=== PATIENT | male | born 1975 | race Caucasian/White ===

== ENCOUNTER 2024-05-09 13:01 | Emergency (ER) | payer BC ==
[~2024-05-09] VITALS: Ht 182.9 cm; Wt 99.8 kg
[2024-05-09 13:01] VITALS: BP_SYST 145; PULSE 113; RESP 22; TEMP 98; O2SAT 99
[2024-05-09] MEDS: LORazepam 2 MG/ML VIAL IVP ONE (13:26)
[2024-05-09] MEDS: NACL 0.9% 2,000 ML IV ONE (13:26)
[2024-05-09 13:50] LABS: BASOPHILS % (AUTO) 0.5 % (0.0-2.0); EOSINOPHILS % (AUTO) 0.3 % (0.0-4.0); HEMATOCRIT 27.2 % (36-54); HEMOGLOBIN 9.4 g/dL (14.0-18.0); LYMPHOCYTES # (AUTO) 0.5 K/uL (1.0-5.5); LYMPHOCYTES % (AUTO) 12.4 % (20.5-51.5); MEAN CORPUSCULAR HEMOGLOBIN 30 pg (27-31); MEAN CORPUSCULAR HGB CONC 34 % (32-36); MEAN CORPUSCULAR VOLUME 86 fL (79.0-98.0); MONOCYTES # (AUTO) 0.1 K/uL (0.0-1.0); NEUTROPHILS # (AUTO) 3.7 K/uL (1.8-7.7); NEUTROPHILS % (AUTO) 83.8 % (40.0-70.0); RED BLOOD CELL COUNT(AUTO) 3.17 MIL/uL (4.2-6.2); RED CELL DISTRIBUTION WIDTH 29.8 % (9.0-15.0); WHITE BLOOD COUNT (AUTO) 4.4 K/uL (4.8-10.8)
[2024-05-09 14:08] LABS: ALANINE AMINOTRANSFERASE 43 U/L (12-78); ALBUMIN 3.2 g/dL (3.4-4.8); ANION GAP 14 (5-15); ASPARTATE AMINOTRANSFERASE 137 U/L (10-37); BILIRUBIN,DIRECT 0.6 mg/dL (0.0-0.3); CALCIUM 8.5 mg/dL (8.4-11.0); CARBON DIOXIDE 26 mmol/L (23-29); CHLORIDE 97 mmol/L (98-107); CREATININE 1.27 mg/dL (0.55-1.30); GFR AFRICAN AMERICAN 79 mL/min (>90); GLUCOSE 198 mg/dL (74-106); SODIUM SERUM 137 mmol/L (136-145); TOTAL BILIRUBIN 1.5 mg/dL (0.0-1.0); TOTAL PROTEIN, SERUM 6.1 g/dL (6.4-8.3); UREA NITROGEN, BLOOD 7 mg/dL (8-21)
[2024-05-09 14:10] LABS: ALCOHOL, BLOOD < 3 mg/dL (<10); GFR NON AFRICAN-AMERICAN 65 mL/min (>90)
[2024-05-09 14:11] LABS: POTASSIUM 2.3 mmol/L (3.5-5.1)
[2024-05-09] MEDS: POTASSIUM CHLORIDE 20 MEQ TABLET.ER PO ONE (14:44)
[2024-05-09] MEDS: KCL 20 mEq in 100 mL (PREMIX) 100 ML IV ONE (14:44)
[2024-05-09 15:02] LABS: ANISOCYTOSIS 2+; OVALOCYTES FEW; STOMATOCYTES FEW; TEAR DROP CELLS FEW
[2024-05-09 15:03] LABS: PLATELET COUNT (AUTO) 116 K/uL (130-430)
[2024-05-09] MEDS ORDERED: CHLO25CA11 PO (17:51)
[2024-05-09] MEDS ORDERED: NALT50TA5 PO (17:51)
[2024-05-09 18:08] VITALS: BP_SYST 140; PULSE 99; RESP 16; TEMP 98; O2SAT 98
== END 2024-05-09 18:08 | disposition home or self-care (01) ==
LOC: SED 13:01
DX: R56.9 Unspecified convulsions (principal); F10.129 Alcohol abuse with intoxication, unspecified; E87.6 Hypokalemia; F41.9 Anxiety disorder, unspecified; R41.0 Disorientation, unspecified; Y90.0 Blood alcohol level of less than 20 mg/100 ml
CPT/HCPCS: 99285; 96365; 70450; 96366; 96361; 96375; 80076; 80048; 85025; 36415; 83605; G0482; J2060; J3480; J7030